=== PATIENT | male | born 1970 | race African-American/Black ===

== ENCOUNTER 2025-09-10 14:59 | Inpatient (IN) | payer OTHER ==
[~2025-09-10] VITALS: Ht 182.9 cm; Wt 115.4 kg
[2025-09-10] MEDS ORDERED: KETOROLAC TROMETHAMINE 30 MG/ML VIAL IVP ONE (15:45)
[2025-09-10 16:02] LABS: PLATELET COUNT (AUTO) 460 K/uL (150-450); RED BLOOD CELL COUNT(AUTO) 6.95 MIL/uL (4.50-5.90); RED CELL DISTRIBUTION WIDTH 15.2 % (11.5-14.5); WHITE BLOOD COUNT (AUTO) 14.4 K/uL (4.5-11.0)
[2025-09-10 16:45] LABS: CALCIUM, TOTAL 9.8 mg/dL (8.8-10.5); CREATININE 1.74 mg/dL (0.60-1.30); GLOMERULAR FILTR. RATE CALC 49.0 mL/min (>60); GLUCOSE,RANDOM 89.0 mg/dL (70-110); SODIUM SERUM 138.0 mmol/L (136-145); UREA NITROGEN, BLOOD 19.0 mg/dL (7-18)
[2025-09-10 16:53] LABS: ASPARTATE AMINOTRANSFERASE 18.0 U/L (15-37); TOTAL PROTEIN, SERUM 8.8 g/dL (6.4-8.2)
[2025-09-10] MEDS ORDERED: 0.9% SODIUM CHLORIDE 10 ML SYRINGE IVP ONE (17:46)
[2025-09-10] MEDS ORDERED: SODIUM CHLORIDE 0.9% 0 ML ONE (17:46)
[2025-09-10] MEDS ORDERED: IOHEXOL 350 MG/ML 100 ML VIAL ONE (17:46)
[2025-09-10] MEDS: SODIUM CHLORIDE 0.9% 1,000 ML IV ONE ×2 (18:26→22:29)
[2025-09-10] MEDS: ACETAMINOPHEN 500 MG TABLET PO ONE (18:26)
[2025-09-10] MEDS: LEVOFLOXACIN 750 MG/D5% WATER 150 ML IV ONE (18:27)
[2025-09-10 19:17] LABS: LACTIC ACID 0.9 mmol/L (0.4-2.0)
[2025-09-10 20:00] LABS: APPEARANCE,URINE HAZY (CLEAR); GLUCOSE, URINE (UA) NEGATIVE (NEGATIVE); LEUKOCYTE ESTERASE ,URINE LARGE (NEGATIVE); NITRATE,URINE NEGATIVE (NEGATIVE); OCCULT BLOOD,URINE MODERATE (NEGATIVE); SPECIFIC GRAVITIY, URINE 1.024 (1.003-1.030)
[2025-09-10] MEDS ORDERED: DEXTROSE 50%-WATER 25 GM/50 ML SYRINGE IVP PRN (20:00)
[2025-09-10] MEDS ORDERED: INSULIN LISPRO 100 UNITS/ML SQ PRN (20:00)
[2025-09-10] MEDS ORDERED: 0.9% SODIUM CHLORIDE 10 ML SYRINGE IVP PRN (20:00)
[2025-09-10 20:09] LABS: SQUAMOUS EPITHELIAL CELL,UR Few /LPF (None Seen)
[2025-09-10 20:41] LABS: PLATELET COUNT (AUTO) 486 K/uL (150-450); RED BLOOD CELL COUNT(AUTO) 5.95 MIL/uL (4.50-5.90); RED CELL DISTRIBUTION WIDTH 15.0 % (11.5-14.5); WHITE BLOOD COUNT (AUTO) 14.9 K/uL (4.5-11.0)
[2025-09-10 20:51] LABS: CALCIUM, TOTAL 8.9 mg/dL (8.8-10.5); CREATININE 1.73 mg/dL (0.60-1.30); GLOMERULAR FILTR. RATE CALC 50.0 mL/min (>60); GLUCOSE,RANDOM 105.0 mg/dL (70-110); SODIUM SERUM 138.0 mmol/L (136-145); UREA NITROGEN, BLOOD 19.0 mg/dL (7-18)
[2025-09-10 20:56] LABS: ASPARTATE AMINOTRANSFERASE 15.0 U/L (15-37); LACTATE DEHYDROGENASE 256.0 U/L (85-227); TOTAL PROTEIN, SERUM 7.7 g/dL (6.4-8.2)
[2025-09-10] MEDS: RINGERS SOLUTION,LACTATED 1,000 ML IV ONE (21:17)
[2025-09-10 23:30] VITALS: BP 112/52; PULSE 68; RESP 18; TEMP 98.6; O2SAT 99
[2025-09-10] MEDS ORDERED: SODIUM CHLORIDE 0.9% 500 ML IV ONE (23:42)
[2025-09-11] MEDS: PIPERACILLIN/TAZO 3.375 GM/D5W 50 ML IV ONE (00:16)
[2025-09-11 05:02] VITALS: BP 105/64; PULSE 79; RESP 18; TEMP 99.1; O2SAT 96
[2025-09-11] MEDS: PIPERACILLIN/TAZO 3.375 GM/D5W 50 ML IV SCH (05:06)
[2025-09-11 05:46] LABS: GLUCOMETER DEV NAME(LOC) 4E.2; GLUCOSE,POINT OF CARE 145 MG/DL (70-110)
[2025-09-11 07:55] LABS: GLUCOMETER DEV NAME(LOC) 6N.2C; GLUCOSE,POINT OF CARE 113 MG/DL (70-110)
[2025-09-11 08:00] VITALS: BP 119/55; PULSE 88; RESP 18; TEMP 100; O2SAT 95
[2025-09-11 08:14] LABS: PLATELET COUNT (AUTO) 473 K/uL (150-450); RED BLOOD CELL COUNT(AUTO) 5.86 MIL/uL (4.50-5.90); RED CELL DISTRIBUTION WIDTH 14.7 % (11.5-14.5); WHITE BLOOD COUNT (AUTO) 11.2 K/uL (4.5-11.0)
[2025-09-11] MEDS: *CLINICAL-LEVOFLOXACIN ORAL DOSING CLINICAL ONE (11:32)
[2025-09-11] MEDS: LEVOFLOXACIN 750 MG/D5% WATER 150 ML IV SCH (13:11)
[2025-09-11 13:18] LABS: CALCIUM, TOTAL 8.5 mg/dL (8.8-10.5); CREATININE 2.01 mg/dL (0.60-1.30); GLOMERULAR FILTR. RATE CALC 42.0 mL/min (>60); GLUCOSE,RANDOM 137.0 mg/dL (70-110); SODIUM SERUM 137.0 mmol/L (136-145); UREA NITROGEN, BLOOD 17.0 mg/dL (7-18)
[2025-09-11 13:36] LABS: GLUCOMETER DEV NAME(LOC) 6N.2C; GLUCOSE,POINT OF CARE 128 MG/DL (70-110)
[2025-09-11] MEDS: ACETAMINOPHEN 650 MG/20.3 ML SOLUTION UDCUP PO PRN (15:46)
[2025-09-11 16:00] VITALS: BP 120/65; PULSE 95; RESP 18; TEMP 102.2; O2SAT 99
[2025-09-11] MEDS ORDERED: *CLINICAL-MEROPENEM DOSING CLINICAL ONE (16:00)
[2025-09-11] MEDS: MEROPENEM 1 GM in SODIUM CHLORIDE 0.9% 50 ML IV SCH (17:44)
[2025-09-11 17:59] VITALS: TEMP 97.9
[2025-09-11 20:00] LABS: GLUCOMETER DEV NAME(LOC) 6N.2C; GLUCOSE,POINT OF CARE 131 MG/DL (70-110)
[2025-09-11 20:07] VITALS: BP 108/53; PULSE 88; RESP 19; TEMP 99.1; O2SAT 96
[2025-09-11] MEDS ORDERED: SODIUM CHLORIDE 0.9% 500 ML IV ONE (23:13)
[2025-09-11] MEDS: MAGNESIUM SULFATE 2 GM/WATER 50 ML IV ONE (23:24)
[2025-09-12 03:06] VITALS: BP 102/57; PULSE 79; RESP 18; TEMP 98.8; O2SAT 95
[2025-09-12 05:31] LABS: GLUCOMETER DEV NAME(LOC) 6N.2C; GLUCOSE,POINT OF CARE 107 MG/DL (70-110)
[2025-09-12 07:36] VITALS: BP 121/51; PULSE 70; RESP 18; TEMP 100.6; O2SAT 100
[2025-09-12] MEDS ORDERED: IBUPROFEN 400 MG TABLET PO PRN (10:00)
[2025-09-12] MEDS ORDERED: ALBUTEROL SULFATE HFA 90 MCG/PUFF 8 GM INHALER IH PRN (10:00)
[2025-09-12] MEDS ORDERED: PETROLATUM,WHITE 28 GM JELLY TP PRN (10:00)
[2025-09-12] MEDS ORDERED: ACETAMINOPHEN 325 MG TABLET PO PRN (10:00)
[2025-09-12] MEDS ORDERED: GuaiFENesin/D-METHORPHAN [SUGAR-FREE] 200-20MG/10 ML SYRUP UDCUP PO PRN (10:00)
[2025-09-12] MEDS ORDERED: MAGNESIUM HYDROXIDE SUSPENSION 30 ML UDCUP PO PRN (10:00)
[2025-09-12] MEDS ORDERED: NICOTINE 14 MG/24 HOUR PATCH TD PRN (10:00)
[2025-09-12] MEDS ORDERED: LOPERAMIDE HCL 2 MG CAPSULE PO PRN (10:00)
[2025-09-12] MEDS ORDERED: DOCUSATE SODIUM 100 MG CAPSULE PO PRN (10:00)
[2025-09-12] MEDS ORDERED: MAG HYDROX/ALUMINUM HYD/SIMETH ES 30 ML SUSPENSION UDCUP PO PRN (10:00)
[2025-09-12] MEDS ORDERED: ONDANSETRON 4 MG TABLET PO PRN (10:00)
[2025-09-12] MEDS: LEVOFLOXACIN 750 MG/D5% WATER 150 ML IV SCH (13:08)
[2025-09-12] MEDS: SODIUM CHLORIDE 0.9% 1,000 ML IV ONE (13:10)
[2025-09-12 14:21] LABS: GLUCOMETER DEV NAME(LOC) 6N.2C; GLUCOSE,POINT OF CARE 104 MG/DL (70-110)
[2025-09-12 20:04] VITALS: BP 112/70; PULSE 92; RESP 20; TEMP 99.1; O2SAT 96
[2025-09-12 22:06] LABS: GLUCOMETER DEV NAME(LOC) 6N.2C; GLUCOSE,POINT OF CARE 138 MG/DL (70-110)
[2025-09-13 05:15] VITALS: BP 112/66; PULSE 71; RESP 18; TEMP 99.1; O2SAT 96
[2025-09-13 06:15] LABS: GLUCOMETER DEV NAME(LOC) 6N.2C; GLUCOSE,POINT OF CARE 113 MG/DL (70-110)
[2025-09-13 07:47] LABS: PLATELET COUNT (AUTO) 431 K/uL (150-450); RED BLOOD CELL COUNT(AUTO) 5.68 MIL/uL (4.50-5.90); RED CELL DISTRIBUTION WIDTH 15.0 % (11.5-14.5); WHITE BLOOD COUNT (AUTO) 9.3 K/uL (4.5-11.0)
[2025-09-13 08:00] VITALS: BP 119/68; PULSE 63; RESP 19; TEMP 99.3; O2SAT 96
[2025-09-13 08:06] LABS: ASPARTATE AMINOTRANSFERASE 21.0 U/L (15-37); CALCIUM, TOTAL 9.2 mg/dL (8.8-10.5); CHOL/HDL RATIO 3.4 (4.2-7.3); CREATININE 1.86 mg/dL (0.60-1.30); GLOMERULAR FILTR. RATE CALC 46.0 mL/min (>60); GLUCOSE,RANDOM 99.0 mg/dL (70-110); LDL CHOL (CALC.) 90.0 mg/dL (0-130); SODIUM SERUM 138.0 mmol/L (136-145); TOTAL PROTEIN, SERUM 7.3 g/dL (6.4-8.2); UREA NITROGEN, BLOOD 18.0 mg/dL (7-18)
[2025-09-13 17:30] LABS: GLUCOMETER DEV NAME(LOC) 6N.2C; GLUCOSE,POINT OF CARE 156 MG/DL (70-110)
[2025-09-13] MEDS: CefTRIAXone SODIUM 2 GM in DEXTROSE 5%-WATER 50 ML IV SCH (18:48)
[2025-09-13 19:30] LABS: APPEARANCE,URINE CLEAR (CLEAR); GLUCOSE, URINE (UA) NEGATIVE (NEGATIVE); LEUKOCYTE ESTERASE ,URINE LARGE (NEGATIVE); NITRATE,URINE NEGATIVE (NEGATIVE); OCCULT BLOOD,URINE MODERATE (NEGATIVE); PH,URINE DRUG SCREEN 6.0 (5.0-8.0); SPECIFIC GRAVITIY, URINE 1.016 (1.003-1.030)
[2025-09-13 19:31] LABS: GLUCOMETER DEV NAME(LOC) 6N.2C; GLUCOSE,POINT OF CARE 122 MG/DL (70-110)
[2025-09-13 19:53] VITALS: BP 116/61; PULSE 85; RESP 18; TEMP 98.6; O2SAT 98
[2025-09-13 19:54] LABS: ALCOHOL, URINE DRUG SCREEN NEGATIVE (NEGATIVE); AMPHET/METH SCREEN,URINE NEGATIVE (NEGATIVE); BARBITURATE SCREEN, URINE NEGATIVE (NEGATIVE); CANNABINOID SCREEN,URINE NEGATIVE (NEGATIVE); COCAINE SCREEN,URINE NEGATIVE (NEGATIVE); METHADONE SCREEN, URINE NEGATIVE (NEGATIVE)
[2025-09-13 20:31] LABS: SQUAMOUS EPITHELIAL CELL,UR Few /LPF (None Seen)
[2025-09-13 21:45] LABS: GLUCOMETER DEV NAME(LOC) 6N.2C; GLUCOSE,POINT OF CARE 123 MG/DL (70-110)
[2025-09-14 04:30] VITALS: BP 122/73; PULSE 83; RESP 18; TEMP 98.2; O2SAT 97
[2025-09-14 06:10] LABS: GLUCOMETER DEV NAME(LOC) 6N.2C; GLUCOSE,POINT OF CARE 100 MG/DL (70-110)
[2025-09-14 07:10] VITALS: BP 136/87; PULSE 67; RESP 18; TEMP 98.2; O2SAT 95
[2025-09-14 12:15] LABS: GLUCOMETER DEV NAME(LOC) 6N.2C; GLUCOSE,POINT OF CARE 129 MG/DL (70-110)
[2025-09-14] MEDS: SODIUM CHLORIDE 0.45% 1,000 ML IV SCH (16:18)
[2025-09-14] MEDS ORDERED: SODIUM CHLORIDE 0.9% 250 ML IV ONE (17:26)
[2025-09-14 20:00] VITALS: BP 118/71; PULSE 73; RESP 18; TEMP 98.8; O2SAT 96
[2025-09-15 04:00] VITALS: BP 132/69; PULSE 64; RESP 18; TEMP 98.6; O2SAT 97
[2025-09-15 08:17] LABS: PLATELET COUNT (AUTO) 456 K/uL (150-450); RED BLOOD CELL COUNT(AUTO) 5.88 MIL/uL (4.50-5.90); RED CELL DISTRIBUTION WIDTH 14.5 % (11.5-14.5); WHITE BLOOD COUNT (AUTO) 7.4 K/uL (4.5-11.0)
[2025-09-15 08:35] VITALS: BP 125/64; PULSE 63; RESP 18; TEMP 98.1; O2SAT 96
[2025-09-15 08:40] LABS: CALCIUM, TOTAL 9.3 mg/dL (8.8-10.5); CREATININE 1.61 mg/dL (0.60-1.30); GLOMERULAR FILTR. RATE CALC 54.0 mL/min (>60); GLUCOSE,RANDOM 91.0 mg/dL (70-110); SODIUM SERUM 137.0 mmol/L (136-145); UREA NITROGEN, BLOOD 21.0 mg/dL (7-18)
[2025-09-15 08:58] LABS: PHOSPHORUS 3.9 mg/dL (2.5-4.9)
[2025-09-15 20:10] VITALS: BP 107/59; PULSE 72; RESP 18; TEMP 98.1; O2SAT 94
[2025-09-16 04:20] VITALS: BP 99/51; PULSE 67; RESP 18; TEMP 98.6; O2SAT 97
[2025-09-16 07:16] VITALS: BP 101/70; PULSE 70; RESP 16; TEMP 97.7; O2SAT 97
[2025-09-16 07:52] VITALS: BP 101/51; PULSE 70; RESP 20; TEMP 97.5; O2SAT 95
[2025-09-16 08:38] LABS: CALCIUM, TOTAL 9.1 mg/dL (8.8-10.5); CREATININE 1.48 mg/dL (0.60-1.30); GLOMERULAR FILTR. RATE CALC 59.0 mL/min (>60); GLUCOSE,RANDOM 92.0 mg/dL (70-110); SODIUM SERUM 136.0 mmol/L (136-145); UREA NITROGEN, BLOOD 24.0 mg/dL (7-18)
[2025-09-16 08:39] LABS: PHOSPHORUS 3.8 mg/dL (2.5-4.9)
[2025-09-16] MEDS: DOXYCYCLINE HYCLATE 100 MG TABLET PO SCH (10:10)
[2025-09-16 19:48] VITALS: BP 114/62; PULSE 70; RESP 17; TEMP 98.2; O2SAT 99
[2025-09-17 04:18] VITALS: BP 115/55; PULSE 65; RESP 17; TEMP 98.2; O2SAT 96
[2025-09-17 06:53] LABS: PLATELET COUNT (AUTO) 488 K/uL (150-450); RED BLOOD CELL COUNT(AUTO) 5.89 MIL/uL (4.50-5.90); RED CELL DISTRIBUTION WIDTH 14.6 % (11.5-14.5); WHITE BLOOD COUNT (AUTO) 8.4 K/uL (4.5-11.0)
[2025-09-17 07:35] LABS: ASPARTATE AMINOTRANSFERASE 33.0 U/L (15-37); CALCIUM, TOTAL 9.3 mg/dL (8.8-10.5); CREATININE 1.54 mg/dL (0.60-1.30); GLOMERULAR FILTR. RATE CALC 57.0 mL/min (>60); GLUCOSE,RANDOM 82.0 mg/dL (70-110); SODIUM SERUM 138.0 mmol/L (136-145); TOTAL PROTEIN, SERUM 7.4 g/dL (6.4-8.2); UREA NITROGEN, BLOOD 22.0 mg/dL (7-18)
[2025-09-17] MEDS: ALBUMIN HUMAN 25%-25GM/100ML 100 ML IV SCH (10:01)
[2025-09-17 16:00] VITALS: BP 127/73; PULSE 81; RESP 20; TEMP 98.1; O2SAT 97
[2025-09-17 20:07] VITALS: BP 138/74; PULSE 87; RESP 18; TEMP 99.3; O2SAT 95
== END 2025-09-17 21:11 | disposition left against medical advice (07) | DRG 871 ==
LOC: EMS 14:59 → EDH 19:57 → EDBEDREQ 20:46 → 6N 23:21
PROVIDERS: ADMIT Internal Medicine; ATTEND Internal Medicine
PROC: 05HA33Z Insertion of Infusion Device into Left Brachial Vein, Percutaneous Approach (ICD-10-PCS; 2025-09-14)
PROC: B54NZZA Ultrasonography of Left Upper Extremity Veins, Guidance (ICD-10-PCS; 2025-09-14)
PROC: 05HB33Z Insertion of Infusion Device into Right Basilic Vein, Percutaneous Approach (ICD-10-PCS; principal; 2025-09-17)
PROC: B54MZZA Ultrasonography of Right Upper Extremity Veins, Guidance (ICD-10-PCS; 2025-09-17)
DX: A41.51 Sepsis due to Escherichia coli [E. coli] (principal); N17.0 Acute kidney failure with tubular necrosis; N18.4 Chronic kidney disease, stage 4 (severe); N39.0 Urinary tract infection, site not specified; N45.3 Epididymo-orchitis; I12.9 Hypertensive chronic kidney disease with stage 1 through stage 4 chronic kidney disease, or unspecified chronic kidney disease; E66.9 Obesity, unspecified; Z53.29 Procedure and treatment not carried out because of patient's decision for other reasons; N40.0 Benign prostatic hyperplasia without lower urinary tract symptoms; E78.00 Pure hypercholesterolemia, unspecified; Z90.79 Acquired absence of other genital organ(s); Z68.34 Body mass index [BMI] 34.0-34.9, adult; Z87.440 Personal history of urinary (tract) infections
CPT/HCPCS: 36245; 36569; 74176; 76770; 76870; 76937; 80048; 80053; 80061; 80076; 80307; 81001; 82962; 83036; 83605; 83615; 83690; 83735; 84100; 84145; 84443; 85025; 85730; 87040; 87077; 87086; 87186; 87205; 96361; 96365; 99285; J0696; J1956; J2185; J2543; J3475; J7030; J7040; J7050; J7060; J7120; P9046; 36415-L1; 36415-TC